=== PATIENT | male | born 1955 | race Caucasian/White ===

== ENCOUNTER 2016-12-07 09:43 | Emergency (ER) | payer BC ==
[~2016-12-07] VITALS: Ht 177.8 cm; Wt 85.2 kg
[~2016-12-07 09:43] MED LIST: VIT-5 PO; [UNRECOGNIZED DRUG - OTHER] PO
[2016-12-07 09:45] VITALS: TEMP 97.7; Ht 177.8 cm; Wt 85.2 kg
--- OUTSIDE RECORDS SUMMARY | 2016-12-07 09:47 | XMS REPORT ---
Author Author Vicente Arzola Organization [employer] Address Unknown Phone Unavailable Care Team Providers Care Community Midwife Name Role Phone Vicente Arzola CP Unavailable Allergies No Known Allergies Problems No Known Problems Medications No Known Medications Results No Known Results Summary Purpose [employer] Submission
--- OUTSIDE RECORDS SUMMARY | 2016-12-07 09:47 | XMS REPORT ---
Author Vicente Medina [facility] [employer] Address Unknown Phone Unavailable Care Team Providers Care Dry Cleaner Helper Name Role Phone Vicente Arzola CP Unavailable Allergies, Adverse Reactions, Alerts Substance Reaction Event Type N.K.D.A. Info Not Available Non Drug Allergy Problems Problem Type Condition Code Onset Dates Condition Status Assessment Encounter for dental examination and cleaning without abnormal findings Z01.20 Active Medications No Known Medications Procedures Procedure Coding System Code Date INTRAORL - CMPL SERIES CODE 09074 CPT-4 D0210 Jul 28, 2016 PROPHYLAXIS - ADULT CPT-4 D1110 Jul 28, 2016 PERIODIC ORAL EXAMINATION CPT-4 D0120 Jul 28, 2016 Results No Known Results Summary Purpose [employer] Submission
--- NOTE | 2016-12-07 09:54 | ERPDOC ---
Departure Disposition Decision Date: Dec 07, 2016 Disposition Decision Time: 11:35 Disposition: 01 DISCHARGED HOME, SELF-CARE Impression Impression Impression: Primary Impression: Renal colic on left side Severity: Moderate Condition: Stable Seen By: Physician only Referrals: ORACIO MAYER MD (Family) Strain your urine and bring results to Dr. Bowser Patient Instructions: Kidney Stones (ED) Problems/Meds/Labs Reviewed?: Yes Medications reviewed and manag: Yes Additional Instructions: Recommend Aleve 2 tabs twice a day as needed Strain your urine, bring results Dr. Mayer's office May use hydrocodone/acetaminophen 1-2 tabs every 6 hours as needed Departure Forms: Return to Work/School Permit Return to Work/School Date: Dec 08, 2016 Follow up care ordered?: Yes Mental Status: Alert, Oriented Scripts Hydrocodone/Apap ([place] 5-325 Tablet) 5-325 Tablet 1-2 TAB PO Q6H Y for PAIN, #20 TAB Prov: NATHANIEL CUMMINGS MD 12/07/16 HPI - Male General Chief Complaint: Male Urogenital Problems Stated Complaint: L TESTICULAR PAIN Time Seen by Provider: 09:53 Source: patient, family Exam Limitations: no limitations HPI - Male Initial Comments Patient is a 61-year-old male, no real past medical history. Patient awoke this morning with severe lower left testicular pain with associated diaphoresis inability to sit still nausea and vomiting. Patient did go his primary care doctor's office, was referred to the ER for further acute evaluation. Occurred At: home Onset: Rapid Duration: 4-6 hrs Pain Scale: Now & Worst: 8/10 Location: scrotal (left) Associated Symptoms: diaphoresis, nausea/vomiting Allergies: Coded Allergies: No Known Drug Allergies (Verified Allergy, Unknown, 12/07/16) Past History Past Medical History Pt denies signifigant PMH Surgical History General: colonoscopy Vaccines Hx Influenza Vaccination: Yes (MAY 2015) Hx Pneumococcal Vaccination: No Social History Does patient use chewing tobac: No Substance Use Type: does not use Alcohol Intake: occasionally Review of Systems Constitutional Constitutional: DENIES: appetite decrease, chills, dizziness, fever, weakness ENMT Sinuses: DENIES: congestion, rhinorrhea Mouth/Throat: DENIES: scratchy throat, sore throat Cardiovascular Cardiac: DENIES: chest pain, dyspnea on exertion Pulmonary Respiratory: DENIES: cough, dyspnea, sputum, tachypnea GI Upper Abdomen: nausea, vomiting, DENIES: pain Lower Abdomen: DENIES: constipation, diarrhea, pain General: DENIES: frequency, urgency Male: testicular pain Musculoskeletal General: DENIES: cramps, pain, weakness Integumentary Skin: DENIES: color change, itching, rash Endocrine Endocrine: DENIES: heat/cold intolerance Hematologic/Lymphatic Hematologic/Lymphatic: DENIES: anemia Physical Exam General General Nourishment: well nourished, well developed General Body Habitus: well groomed Vitals and Pain First Documented Vital Signs Date Time Temp Pulse Resp B/P Pulse Ox O2 Delivery O2 Flow Rate FiO2 12/07/16 09:45 97.7 54 16 192/91 100 Room Air 12/07/16 10:55 2.00 Weight: Kilograms: Height (feet): 5 Height (inches): 10.00 Triage Pain Scale: RN VS reviewed by Provider: Yes Eyes (brief) Eyes Brief: found: EOMI ENMT (brief) ENMT Brief: FOUND: mucosa moist, normal dentition, NOT FOUND: nasal erythema, pharnyx erythema, tonsillar deviation Neck (brief) Neck: NOT FOUND: adenopathy, spasm, tenderness Respiratory (brief) Respiratory: FOUND: clear all parker, equal bilaterally, NOT FOUND: rales, wheezes Cardiovascular (brief) Cardiac: FOUND: regular rate, regular rhythm Capillary Refill: <2 sec Abdomen Palpation: FOUND: soft, NOT FOUND: involuntary guarding, tender, voluntary guarding Penis: FOUND: circumcised, NOT FOUND: blood at meatus, lesion, paraphimosis, phimosis, priapism Scrotum: FOUND: tender cord, NOT FOUND: ecchymosis, erythema, hernia, hydrocele , swelling Testicles: FOUND: cremasteric reflex, NOT FOUND: enlarged, epididymus tender, tenderness Lymphatic (brief) Lymphatic Brief: NOT FOUND: adenopathy Integumentary (brief) Integumentary Brief: FOUND: dry, pink, warm, NOT FOUND: rash Neurologic (brief) Neurological Brief: FOUND: CN w/o gross def to obs, motor-no gross deficits, sensory-no gross deficits Psychiatric (brief) Psychiatric Brief: FOUND: alert, oriented Differential Diagnoses Considering: Epididymitis, Orchitis, Pyelonephritis, Renal Colic, Testicular Torsion, Torsion Appendix Testis, Trauma, Ureteral Stone, Urinary Retention, UTI Progress Results/Orders Orders Procedure Category Date Status Time Iv Lock (Ed Only) EDM 12/07/16 Transmitted 09:53 Nothing By Mouth (Ed EDM 12/07/16 Transmitted Only) 09:53 Cbc W/Auto LAB 12/07/16 Complete Diff-Reflex Manual 09:53 Bmp - Basic Metabolic LAB 12/07/16 Complete Panel 09:53 Ua, Dip Wreflex LAB 12/07/16 [employer]ged [employer] Crane Operator 09:53 Normal Saline (Normal PHA 12/07/16 Complete Saline Iv) 10:00 Morphine Sulfate PHA 12/07/16 Complete (Morphine) 10:00 Ondansetron Inj PHA 12/07/16 Complete (Zofran) 10:00 Ketorolac (Toradol) PHA 12/07/16 Complete 10:00 Ct Renal W/O Contrast CT 12/07/16 Resulted 10:16 Lab Results Laboratory Tests Test 12/07/16 10:15 White Blood Count 8.2T/MM3 Red Blood Count 4.79M/MM3 Hemoglobin 15.6GM/DL Hematocrit 45.4% Mean Corpuscular Volume 94.8UM3 Mean Corpuscular Hemoglobin 32.6UUG Mean Corpuscular Hemoglobin Concent 34.4GM/DL RDW Standard Deviation 42.5FL Platelet Count 173T/MM3 Mean Platelet Volume 10.7UM3 Immature Granulocyte % (Auto) % Neutrophils (%) (Auto) % Lymphocytes (%) (Auto) % Monocytes (%) (Auto) % Eosinophils (%) (Auto) % Basophils (%) (Auto) % Absolute Immature Granulocyte (auto T/MM3 Absolute Neutrophils (auto) T/MM3 Absolute Lymphocytes (auto) T/MM3 Absolute Monocytes (auto) T/MM3 Absolute Eosinophils (auto) T/MM3 Absolute Basophils (auto) T/MM3 Neutrophils % (Manual) 87.0% Band Neutrophils % 1.0% Lymphocytes % (Manual) 7.0% Monocytes % (Manual) 4.0% Basophils % (Manual) 1.0% Absolute Neutrophils (Manual) 7.1T/MM3 Band Neutrophils # 0.1T/MM3 Lymphocytes # (Manual) 0.6T/MM3 Monocytes # (Manual) 0.3T/MM3 Basophils # (Manual) 0.1T/MM3 Red Cell Morphology Comment Normal Turbidity < 20 Sodium Level 148MEQ/L Potassium Level 4.1MEQ/L Chloride Level 106MEQ/L Carbon Dioxide Level 26MEQ/L Anion Gap 16MEQ/L Blood Urea Nitrogen 16.0MG/DL Creatinine 1.0MG/DL Glomerular Filtration Rate Calc 76 BUN/Creatinine Ratio 16RATIO Glucose Level 126MG/DL Calculated Osmolality 287MOSM/KG Calcium Level 9.4MG/DL Icterus Index < 2 Chemistry Specimen Hemolysis < 15 Medications Current ED Medications Sodium Chloride (Normal Saline IV) 1,000 ml @ 999 mls/hr Q1H1M ONCE IV Last administered on 12/07/16 10:07; Start 12/07/16 at 10:00; Stop 12/07/16 at 11:00 ; Status DC Morphine Sulfate (Morphine) 4 mg O ONCE IV Last administered on 12/07/16 10: 10; Start 12/07/16 at 10:00; Stop 12/07/16 at 10:01; Status DC Ondansetron HCl (Zofran) 4 mg O ONCE IV Last administered on 12/07/16 10:08; Start 12/07/16 at 10:00; Stop 12/07/16 at 10:01; Status DC Ketorolac Tromethamine (Toradol) 30 mg O ONCE IV Last administered on 10:09; Start 12/07/16 at 10:00; Stop 12/07/16 at 10:01; Status DC Progress Progress Patient with 3 mm stone at the UVJ. While patient was waiting for results of CT scan he had sudden severe pain, and then pain resolved, suspect patient passed stone. We'll discharge patient home small amount of pain meds follow-up with Dr. Mayer strain urine. CT CT : CT: Renal no contrast Interpretation: Abnormal, Reviewed Written Report NATHANIEL CUMMINGS MD Dec 07, 2016 09:54
[2016-12-07] MEDS ORDERED: KETOROLAC 30mg/ml INJECTION IV ONE (10:00)
[2016-12-07] MEDS ORDERED: MORPHINE SULFATE 4 MG SYRINGE IV ONE (10:00)
[2016-12-07] MEDS ORDERED: NO ROUTINE MEDS (10:00)
[2016-12-07] MEDS ORDERED: ONDANSETRON 4mg/2ml INJECTION IV ONE (10:00)
[2016-12-07] MEDS ORDERED: NORMAL SALINE 1,000 ML IV ONE (10:00)
[2016-12-07] MEDS ORDERED: IBUP-1724 PO (10:00)
--- NOTE | 2016-12-07 10:00 | NUR ---
PHYSICIAN VISIT DR. CUMMINGS IN TO SEE PATIENT.
[2016-12-07 10:24] LABS: HCT - HEMATOCRIT 45.4 % (41-53); HGB - HEMOGLOBIN 15.6 GM/DL (13.5-17.5); MEAN CORPUSCULAR HGB 32.6 UUG (26-34); MEAN CORPUSCULAR HGB CONC(MCHC 34.4 GM/DL (31-37); MEAN CORPUSCULAR VOLUME 94.8 UM3 (80-100); MEAN PLATELET VOLUME 10.7 UM3 (9.4-12.4); RED BLOOD COUNT 4.79 M/MM3 (4.50-5.90); WBC - WHITE BLOOD COUNT 8.2 T/MM3 (4.5-11.0)
[2016-12-07 10:33] LABS: ANION GAP 16 MEQ/L (5-15); BUN/CREATININE RATIO 16 RATIO (6-26); CALCIUM 9.4 MG/DL (8.4-10.2); CHLORIDE 106 MEQ/L (98-107); CO2 - CARBON DIOXIDE 26 MEQ/L (22-30); GLOMERULAR FILTRATION RATE 76; GLUCOSE 126 MG/DL (75-110); POTASSIUM 4.1 MEQ/L (3.6-5); SODIUM 148 MEQ/L (134-144)
[2016-12-07 10:37] LABS: BAND NEUTROPHILS # 0.1 T/MM3; BASOPHILS # (MANUAL) 0.1 T/MM3 (0-0.2); LYMPHOCYTES # (MANUAL) 0.6 T/MM3 (1-4.8); MONOCYTES # (MANUAL) 0.3 T/MM3 (0-0.8); NEUTROPHILS #(MANUAL)-ABSOLUTE 7.1 T/MM3 (1.8-7.7); TOTAL CELLS COUNTED 100 %
--- NOTE | 2016-12-07 10:57 | NUR ---
CT SCAN PATIENT TRANSPORTED TO CT VIA STRETCHER PER SCIENTIFIC SPECIALIST.
--- NOTE | 2016-12-07 11:27 | DI ---
Indication: ITS.REASON: left lower quadrant/testicular pain rule out stone PROCEDURE: CT RENAL W/O CONTRAST: Encounter: Initial Comparison: None Technique: Axial CT images were performed through the abdomen and pelvis without intravenous contrast. Coronal and sagittal two-dimensional reformats. Automated Exposure Control and Iterative Reconstruction dose reducing techniques were utilized. Findings: Mild dependent atelectasis in both lung bases. The unenhanced contours of the liver are unremarkable. Small gallstone within the gallbladder. The spleen, pancreas and adrenal glands are within normal limits. Right kidney is normal. No right-sided ureteral stone. Left kidney shows mild hydronephrosis with a 2 mm lower pole stone and perinephric inflammatory stranding. There is mild left hydroureter to the level of an obstructing 3 mm distal ureteral stone at the ureterovesicular junction. No free fluid. No evidence of a bowel obstruction. The appendix is normal. Bone windows show no acute findings. Impression: Obstructing 3 mm left distal ureteral stone at the ureterovesicular junction. Additional nephrolithiasis and cholelithiasis. .
[2016-12-07] MEDS ORDERED: HYDR-3989 PO (11:37)
[2016-12-07 12:15] VITALS: BP 146/81; PULSE 60; RESP 16; O2SAT 99
== END 2016-12-07 12:20 | disposition home or self-care (01) ==
LOC: ED 09:43
DX: N13.2 Hydronephrosis with renal and ureteral calculous obstruction (principal)
CPT/HCPCS: 74176; 80048; 85025; 96361; 96374; 96375; 99284; J1885; J2405; J7030